=== PATIENT | female | born 1945 | race American Indian/Alaskan Native ===

== ENCOUNTER 2021-07-07 10:10 | Day surgery (SDC) | payer MEDICARE ==
[2021-07-07] MEDS ORDERED: ceFAZolin/STERILE WATER 2 GM/20 ML SYRINGE IV NR (11:00)
[2021-07-07] MEDS ORDERED: SODIUM CHLORIDE 0.9% 500 ML 500 ML IV SCH (11:00)
[2021-07-07] MEDS ORDERED: HEPARIN 10,000 UNITS/10 ML VIAL ONE (11:58)
[2021-07-07] MEDS ORDERED: HEPARIN/NS 5000 UNIT/500ML 500 ML IR ONE (11:58)
[2021-07-07] MEDS ORDERED: LIDOCAINE (2%) 20 MG/1 ML VIAL 20 ML MDV INFILTRATI ONE ×3 (11:59→13:12)
[2021-07-07] MEDS ORDERED: fentaNYL 100 MCG/2 ML INJ ONE (11:59)
[2021-07-07] MEDS ORDERED: MIDAZOLAM 2 MG/2 ML INJ ONE (11:59)
[2021-07-07] MEDS ORDERED: ceFAZolin/STERILE WATER 2 GM/20 ML SYRINGE IV ONE ×2 (12:54→13:09)
[2021-07-07] MEDS ORDERED: MIDAZOLAM 2 MG/2 ML INJ IV ONE ×3 (12:55→13:19)
[2021-07-07] MEDS ORDERED: fentaNYL 100 MCG/2 ML INJ IV ONE ×4 (12:55→13:38)
[2021-07-07] MEDS ORDERED: HEPARIN 2,000 UNIT in SODIUM CHLORIDE 0.9% 500 ML 500 ML IR ONE (12:56)
[2021-07-07] MEDS ORDERED: ceFAZolin/Water 2 GM/20 ML 2 GM/20 ML SYRINGE IV ONE (12:58)
--- NOTE | 2021-07-07 14:10 | Short Stay Summary ---
Short Stay Documentation Date of service: 07/07/21 Narrative H&P: See H&P - History H&P: obtained from office - Allergies and Medications Current Medications: Allergies No Known Allergies Allergy (Unverified 02/22/16 16:06) Home Medications Medication Instructions Recorded Confirmed Last Taken Type Albuterol Sulfate [Ventolin HFA] 2 puff IH PRN PRN 02/22/16 07/07/21 03/28/16 History Atorvastatin Calcium 10 mg PO DAILY 02/22/16 07/07/21 07/06/21 History 10 mg Furosemide 40 mg PO DAILY 02/22/16 07/07/21 07/06/21 History 40 mg ISOSORBIDE MONOnitrate [Imdur ER] 30 mg PO DAILY 02/22/16 07/07/21 07/06/21 History 30 mg Insulin Aspart (Nf) [NovoLOG 1 - 15 unit SQ PRN PRN 02/22/16 07/07/21 07/06/21 History Flexpen] 5 units Insulin Glargine,Hum.rec.anlog 34 units SQ DAILY 02/22/16 07/07/21 03/28/16 22:00 History [Lantus Solostar] 34 UNITS Latanoprost 1 drop OU DAILY 02/22/16 07/07/21 07/06/21 History 2.5 Metoprolol Tartrate 50 mg PO BID 02/22/16 07/07/21 03/29/16 06:00 History Montelukast Sodium 10 mg PO DAILY 02/22/16 07/07/21 03/28/16 History Potassium Chloride [Klor-Con M20] 20 tab PO DAILY 02/22/16 07/07/21 07/06/21 History 20 meq Solifenacin Succinate (Nf) 5 mg PO DAILY 02/22/16 07/07/21 03/28/16 History [Vesicare (Nf)] hydrALAZINE [Apresoline TAB] 10 mg PO BID 02/22/16 07/07/21 07/06/21 History 10 mg lisinopriL [Lisinopril] 5 mg PO DAILY 02/22/16 07/07/21 03/28/16 History methIMAzole [Tapazole] 2.5 mg PO DAILY 02/22/16 07/07/21 03/28/16 History Active Medications Cefazolin Sodium (Cefazolin/Sterile Water 2 Gm/20 Ml Syringe) 2 gm IV PREOP NR Stop: 07/07/21 23:59 Sodium Chloride (Nacl 0.9% 500 Ml) 500 mls @ 50 mls/hr IV DIRECT GENE - Brief post op/procedure progress note Date of procedure: 07/07/21 Pre-op diagnosis: Complications of Dialysis Access Post-op diagnosis: same Procedure: 1. Access Left Arm AV Fistula with 7 [place] Sheath Venous 2. Access Left Arm AV Fistula with 6 [place] Sheath Arterial 3. Catheter in Left Brachial Artery 4. Diagnostic Left Upper Extremity Angiogram 5. Angioplasty of Left Arm AV Fistula with 8 x 100 [place] Balloon in The Venous Outflow and a 6 x 40 [place] Balloon In the Arterial Inflow 6. Radiologic Supervision with Interpretation 7. Monitored Moderate Sedation (Total Anesthesia Time: 44 Minutes) Anesthesia: local, other (Monitored Moderate Sedation) Surgeon: MARIAJOSE PEPPER Estimated blood loss: minimal Pathology: none Condition: stable - Disposition Condition at discharge: Good Disposition: 01 HOME / SELF CARE / HOMELESS Short Stay Discharge Plan Wound: remove dressing (Remove dressing during next dialysis session. Remove the sutures by pulling the longer of the 2 strings.)
--- NOTE | 2021-07-07 14:33 | Operative Report ---
Operative Report Operative Report: Date of Procedure: 07/07/2021 Pre-operative Diagnosis: Complications of Dialysis Access Post-operative Diagnosis: Same Procedure(s): 1. Access Left Arm AV Fistula with 7 [place] Sheath Venous 2. Access Left Arm AV Fistula with 6 [place] Sheath Arterial 3. Catheter in Left Brachial Artery 4. Diagnostic Left Upper Extremity Angiogram 5. Angioplasty of Left Arm AV Fistula with 8 x 100 [place] Balloon in The Venous Outflow and a 6 x 40 [place] Balloon In the Arterial Inflow 6. Radiologic Supervision with Interpretation 7. Monitored Moderate Sedation (Total Anesthesia Time: 44 Minutes) Surgeon: Napoleon Sorensen M.D. Revenue Manager: None Anesthesia: Local/Monitored Moderate Sedation Total Anesthesia Time: 44 Minutes EBL: Minimal Counts: Correct Complications: None Condition: Stable Specimen: None Indication: The patient is a 75-year-old female with a history of end-stage renal disease who is currently on hemodialysis through a left brachiocephalic arteriovenous fistula. She presents with complaints of difficulty cannulating her access. She is in need of a diagnostic fistulogram with possible intervention. She has been given the risk, benefits, and alternative procedures and consented to the procedure. Angiographic Findings: The diagnostic fistulogram revealed approximately 50% stenosis within the cannulation zone of the fistula. There is approximately 85% stenosis within a stent graft in the cephalic arch. The central venous system is patent without evidence of flow-limiting stenosis. The diagnostic left upper extremity angiogram revealed the brachial artery was patent without evidence of flow- limiting stenosis. There is approximately 75% stenosis of the anastomosis as well as a short segment of the arterial inflow of the fistula. After intervention the venous outflow of the fistula is patent with less than 20% residual stenosis. The arterial inflow the fistula is patent with less than 15% residual stenosis. Description of Procedure: The patient was brought to the [employer] and laid in supine position. After timeout was performed her left arm was prepped and draped in normal sterile fashion. Lidocaine was used to anesthetize the skin and soft tissue overlying the fistula and then a 21-gauge micropuncture needle was used access the fistula towards the venous outflow. A 0.018 micropuncture wire was advanced to the fistula and after removing the needle a 7 [place] sheath was placed by Seldinger technique. A diagnostic fistulogram with central venogram was performed with the previously described findings. I advanced a 0.035 J-wire into the central venous system and then used an 8 x 100 [place] Balloon to perform angioplasty of the areas of stenosis in the cephalic arch as well as the cannulation zone of the fistula. This resulted in less than 20% residual stenosis within the cephalic arch as well as the cannulation zone of the fistula. I then used lidocaine to anesthetize the skin and soft tissue overlying the fistula near the venous outflow of the fistula. I used a 21-gauge micropuncture needle to access the fistula towards the arterial inflow and after advancing the wire into the fistula remove the needle and placed a 6 [place] sheath by Seldinger technique. I then advanced a 0.035 floppy Glidewire and vertebral catheter into the proximal brachial artery performed a diagnostic angiogram with the previously described findings. I advanced the J-wire into the proximal brachial artery and then used a 6 x 40 [place] Balloon to perform angioplasty of the areas of stenosis within the arterial inflow including the anastomosis. I readvanced the vertebral cath into the brachial artery performed a final angiogram revealing l ess than 15% residual stenosis within the arterial inflow the fistula. At this point all catheters and wires were removed and 2-0 Ethilon in slipknot fashion was used to close each entry site after removing the sheaths. Sterile dressings were then applied to the entry sites and the patient was transported to the recovery area in stable condition.
[2021-07-07 14:46] VITALS: BP 143/74
== END 2021-07-07 15:00 | disposition home or self-care (01) ==
LOC: CATHLABREC 10:10
PROVIDERS: ATTEND Surgery Vascular Surgery
DX: T82.49XA Other complication of vascular dialysis catheter, initial encounter (principal); N18.6 End stage renal disease; Z99.2 Dependence on renal dialysis; Z87.891 Personal history of nicotine dependence; Z79.4 Long term (current) use of insulin; Z79.899 Other long term (current) drug therapy; Z98.890 Other specified postprocedural states; Y83.8 Other surgical procedures as the cause of abnormal reaction of the patient, or of later complication, without mention of misadventure at the time of the procedure
CPT/HCPCS: 36415; 36902; 84132; 99156; 99157; C1725; C1751; C1769; C1894; J0690; J1644; J2250; J3010; J7040; Q9967